=== PATIENT | female | born 1995 | race Caucasian/White ===

== ENCOUNTER 2018-01-24 08:23 | Emergency (ER) | payer OTHER ==
[2018-01-24] MEDS ORDERED: ONDANSETRON HCL INJ/PF 4 MG/2 ML SDV IV ONE (08:54)
[2018-01-24] MEDS ORDERED: NORMAL SALINE 1000 ML 1,000 ML IV ONE (08:54)
[2018-01-24] MEDS ORDERED: KETOROLAC TROMETHAMINE INJ/PF 30 MG/1 ML SDV IV ONE (08:55)
[2018-01-24 09:14] LABS: ABSOLUTE EOSINOPHILS # (AUTO) 0.1 10^3/uL (0.0-0.6); ABSOLUTE LYMPHOCYTES (AUTO) 2.6 10^3/uL (0.5-4.7); ABSOLUTE MONOCYTES (AUTO) 0.4 10^3/uL (0.1-1.4); ABSOLUTE NEUT (AUTO) 3.5 10^3/uL (1.7-8.2); BASOPHILS % (AUTO) 0.6 % (0-2); EOSINOPHILS % (AUTO) 1.7 % (0-6); HEMATOCRIT 40.5 % (36.0-47.0); HEMOGLOBIN 13.9 g/dL (12.0-15.5); LYMPHOCYTES % (AUTO) 39.3 % (13-45); MEAN CORPUSCULAR HEMOGLOBIN 29.3 pg (27.0-33.4); MEAN CORPUSCULAR HGB CONC 34.2 g/dL (32.0-36.0); MEAN CORPUSCULAR VOLUME 86 fl (80-97); MONOCYTES % (AUTO) 6.2 % (3-13); PLATELET COUNT 295 10^3/uL (150-450); RED BLOOD COUNT 4.73 10^6/uL (3.72-5.28); RED CELL DISTRIBUTION WIDTH 13.6 % (11.5-14.0); SEGMENTED NEUTROPHILS % (AUTO) 52.2 % (42-78); TOTAL CELLS COUNTED % (AUTO) 100 %; WHITE BLOOD COUNT 6.7 10^3/uL (4.0-10.5)
[2018-01-24 09:19] LABS: APPEARANCE,URINE SLIGHTLY-CLOUDY; BILIRUBIN,URINE NEGATIVE (NEGATIVE); COLOR,URINE YELLOW; GLUCOSE, URINE NEGATIVE (NEGATIVE); KETONES,URINE NEGATIVE (NEGATIVE); LEUKOCYTE ESTERASE,URINE NEGATIVE (NEGATIVE); NITRITE,URINE NEGATIVE (NEGATIVE); PROTEIN,URINE NEGATIVE (NEGATIVE); URINE SPECIFIC GRAVITY 1.017; UROBILINOGEN,URINE NEGATIVE mg/dL (<2.0)
[2018-01-24 09:36] LABS: ALANINE AMINOTRANSFERASE 65 U/L (9-52); ALBUMIN 4.7 g/dL (3.5-5.0); ALKALINE PHOSPHATASE 71 U/L (38-126); ANION GAP 14 (5-19); ASPARTATE AMINO TRANSFERASE 42 U/L (14-36); BILIRUBIN,DIRECT 0.1 mg/dL (0.0-0.4); BILIRUBIN,TOTAL 0.6 mg/dL (0.2-1.3); BLOOD UREA NITROGEN 13 mg/dL (7-20); CALCIUM 10.2 mg/dL (8.4-10.2); CARBON DIOXIDE 21 mmol/L (22-30); CHLORIDE 107 mmol/L (98-107); GLUCOSE 87 mg/dL (75-110); LIPASE 102.6 U/L (23-300); POTASSIUM 4.6 mmol/L (3.6-5.0); SODIUM 142.3 mmol/L (137-145); TOTAL PROTEIN 7.9 g/dL (6.3-8.2)
--- NOTE | 2018-01-24 10:28 | RADIOLOGY REPORT (SQ) ---
EXAM DESCRIPTION: U/S ABDOMEN LIMITED W/O DOP COMPLETED DATE/TIME: 01/24/2018 10:18 am REASON FOR STUDY: right upper quad pain COMPARISON: None. TECHNIQUE: Dynamic and static grayscale images acquired of the abdomen and recorded on PACS. Additio nal selected color Doppler and spectral images recorded. LIMITATIONS: None. FINDINGS: PANCREAS: No masses. Visualized pancreatic duct normal caliber. LIVER: No masses. Echotexture normal. LIVER VASCULATURE: Normal directional flow of the main portal vein and hepatic veins. GALLBLADDER: No stones. Normal wall thickness. No pericholecystic fluid. ULTRASOUND-DETECTED HELTON'S SIGN: Negative. INTRAHEPATIC DUCTS AND COMMON DUCT: CBD and intrahepatic ducts normal caliber. No filling defects. INFERIOR VENA CAVA: Normal flow. AORTA: No aneurysm. RIGHT KIDNEY: Prominent renal pelvis. No isaiah hydronephrosis. No visualized calculi. PERITONEAL AND RIGHT PLEURAL SPACE: No ascites or effusions. OTHER: No other significant findings. IMPRESSION: Prominent right renal pelvis. No visualized renal calculi. TECHNICAL DOCUMENTATION: JOB ID: [id number] [employer]- All Rights Reserved Reading location - IP/workstation name: [email or web address]
[2018-01-24 11:22] VITALS: BP 122/70
--- NOTE | 2018-01-24 11:55 | ER Document Report ---
ED GI/ - General Chief Complaint: Abdominal Pain Stated Complaint: NAUSEA/ABDOMINAL PAIN Time Seen by Provider: 01/24/18 08:38 Mode of Arrival: Ambulatory Information source: Patient Notes: Patient is a 22-year-old female comes to emergency room complaining of right upper quadrant pain. Patient states that is been going on for months but she is ignored it. She states that for the past 2 days though she has not been able to ignore it. She works as a dialysis nurse locally and she was at work today when the pain hit her and she could not take it any longer. It is right upper quadrant radiates to her back right around the scapular area. It makes her nauseous and she did vomit once last night. She did notice an association early on in that 2 months of increased symptoms with fat fried foods however over the course of time that negated itself and she has became more nauseated with any type of food. Patient states she ate last night around 5 PM and she ate some Togolese low main only had a few noodles before the abdominal pain started to become severe. She could hardly sleep last night. States she had a temperature to 100.6 this morning. States her told her that she needed to go to the emergency room. Patient denies any other medical problems. She does not smoke her last menstrual period is unknown because she is on the. She is TRAVEL OUTSIDE OF THE [place] IN LAST 30 DAYS: No - HPI Patient complains to provider of: Abdominal pain, Vomiting Onset: Other - 2 months worse the past 2 days. Timing/Duration: Gradual, Worse Quality of pain: Cramping, Sharp, Throbbing Severity at maximum: Severe Severity in ED: Moderate Pain Level: 3 Location: Epigastric, RUQ, Right flank Vaginal bleeding (Compared to normal period): None LMP: On Depo-Provera Sexual history: Active Associated symptoms: Chest pain, Loss of appetite, Nausea, Radiates to back Exacerbated by: Denies Relieved by: Denies Similar symptoms previously: Yes Recently seen / treated by doctor: No - Related Data Allergies/Adverse Reactions: No Known Allergies Allergy (Verified 01/24/18 08:25) Past Medical History - General Information source: Patient, Relative - Early - Social History Smoking Status: Never Smoker Chew tobacco use (# tins/day): No Frequency of alcohol use: Rare Drug Abuse: None Occupation: Dialysis nurse Lives with: Family Family History: Reviewed & Not Pertinent Patient has suicidal ideation: No Patient has homicidal ideation: No - Past Medical History Cardiac Medical History: Denies: Hx Congestive Heart Failure, Hx Coronary Artery Disease, Hx Hypertension, Hx Heart Murmur Pulmonary Medical History: Reports: None Renal/ Medical History: Denies: Hx Peritoneal Dialysis Past Surgical History: Reports: Hx Orthopedic Surgery. Denies: Hx Cardiac Catheterization, Hx Pacemaker, Hx Valve Replacement, Hx Vascular Surgery Review of Systems - Review of Systems Constitutional: No symptoms reported EENT: No symptoms reported Cardiovascular: No symptoms reported Respiratory: No symptoms reported Gastrointestinal: Abdominal pain Genitourinary: No symptoms reported Female Genitourinary: No symptoms reported Musculoskeletal: No symptoms reported Skin: No symptoms reported Hematologic/Lymphatic: No symptoms reported Neurological/Psychological: No symptoms reported -: Yes All other systems reviewed and negative Physical Exam - Vital signs Vitals: Temp Pulse Resp BP Pulse Ox 98.2 F 76 14 138/90 H 99 01/24/18 08:28 01/24/18 08:28 01/24/18 08:28 01/24/18 08:28 01/24/18 08:28 Interpretation: Hypertensive - Notes Notes: PHYSICAL EXAMINATION: GENERAL: Patient is a well-developed well-nourished 22-year-old female who is in no distress but in apparent discomfort. Patient has a hard time finding a position of comfort currently in this presentation.. HEAD: Atraumatic, normocephalic. EYES: Pupils equal round and reactive to light, extraocular movements intact, conjunctiva are normal. ENT: Nares patent, oropharynx clear without exudates. Moist mucous membranes. NECK: Normal range of motion, supple without lymphadenopathy LUNGS: Breath sounds clear to auscultation bilaterally and equal. No wheezes rales or rhonchi. HEART: Regular rate and rhythm without murmurs ABDOMEN: Examination patient's abdomen shows that she has bowel sounds in all 4 quadrants she has tenderness noted to the right upper quadrant. She does have what appears to be a positive Winston sign very tender to palpate along the liver border. Patient does not have any guarding or peritoneal signs in the lower abdominal area. There is no CVA tenderness per se but she feels discomfort and pain around the scapular area. Patient also has some mild amount of reflux noted. She also has some belching. Patient appears uncomfortable. Female : deferred Musculoskeletal: Normal range of motion, no pitting or edema. No cyanosis. NEUROLOGICAL: Cranial nerves grossly intact. Normal speech, normal gait. Normal sensory, motor exams PSYCH: Normal mood, normal affect. SKIN: Warm, Dry, normal turgor, no rashes or lesions noted. Course - Re-evaluation Re-evalutation: 01/24/18 11:58 Patient's presentation and stay during the emergency was uneventful. Patient is exam was indicative of having a gallbladder attack however her ultrasound showed a normal gallbladder and her liver functions were only minimally elevated. At this point patient's pain was controlled with the Toradol believe most likely patient is having some biliary colic that is or may be related to a nonfunctional gallbladder. I have suggested to her that she contact her primary care for possible outpatient HIDA scan and I have also discussed with her best to follow-up with a GI specialist. Patient is a dialysis nurse so she understands the importance of follow-up During patient's course of stay her pain did dwindle down after receiving the Toradol shot. I have discussed with patient the idea of nonfunctioning gallbladder and she will follow-up with a GI specialist as soon as she can. 01/24/18 20:28 - Vital Signs Vital signs: Temp Pulse Resp BP Pulse Ox 98.6 F 86 16 122/70 100 01/24/18 11:21 01/24/18 11:21 01/24/18 11:21 01/24/18 11:21 01/24/18 11:21 - Laboratory Result Diagrams: 01/24/18 08:57 01/24/18 08:57 Laboratory results interpreted by me: 01/24/18 01/24/18 08:57 09:16 Carbon Dioxide 21 L Lactic Acid 0.5 L AST 42 H ALT 65 H Discharge - Discharge Clinical Impression: Gallbladder colic, Esophagitis Abdominal pain Qualifiers: Abdominal location: right upper quadrant Qualified Code(s): R10.11 - Right upper quadrant pain Condition: Stable Disposition: HOME, SELF-CARE Instructions: Abdominal Pain ([facility]), Antispasmodics ([facility]), Esophagitis ([facility]), Gallbladder Disease ([facility]), Reflux Disease (GERD) ([facility]), Sucralfate ([facility]) Additional Instructions: As we discussed your right upper quadrant discomfort and pain may still be her gallbladder even with a normal ultrasound. You may want to talk to your primary care provider to see if he can schedule an outpatient HIDA scan. A lot of times he can have a nonfunctioning gallbladder which may cause the same kind of symptomatology. Meantime we will treat you with an antispasmodic and a reflux type of a medication that may have a different approach than your omeprazole. I would highly suggest that you contact them this week so that you can schedule this as an outpatient exam. Should you have any concerns or problems Prescriptions: Hyoscyamine Sulfate [Levsin 0.125 Tablet] 0.25 mg PO Q4 #40 tablet Sucralfate [Carafate 1 gm Tablet] 1 gm PO ACHS #60 tablet Forms: Return to Work Referrals: CYRUS BENAVIDES MD [ACTIVE STAFF] - Follow up as needed
== END 2018-01-24 12:23 | disposition home or self-care (01) ==
LOC: ER 08:23
DX: K80.20 Calculus of gallbladder without cholecystitis without obstruction (principal); K20.9 Esophagitis, unspecified; R10.11 Right upper quadrant pain; M54.9 Dorsalgia, unspecified; R11.2 Nausea with vomiting, unspecified; R07.9 Chest pain, unspecified; R63.0 Anorexia
CPT/HCPCS: 99284; 96361; 96374; 96375; 36415; 83690; 85025; 81025; 80053; 81001; 83605; 76705; J1885; J2405; J7030